=== PATIENT | male | born 1970 | race Caucasian/White ===

== ENCOUNTER 2017-01-05 14:25 | Emergency (ER) | payer BC ==
[2017-01-05] MEDS ORDERED: Tetan/Diph/Pertus SYR(Tdap)* 0.5 ML SYR(BOOSTRIX) use SYR IM ONE (15:07)
[2017-01-05 15:10] VITALS: BP 127/73
[2017-01-05] MEDS ORDERED: Lidocaine 2% W/EPI 1:100,000* 20 ML MDV ONE (15:14)
--- NOTE | 2017-01-05 15:23 | UC ---
Laceration HPI - HPI Summary HPI Summary: The patient comes in today for: 1. Laceration of the right wrist: Onset: Yesterday--about 9 PM. Palliative/provocative: Pressing on it makes it worse. Rest makes it better. Reaching down made it worse. Quality: No pain at this time at rest. Region/radiation: Right volar wrist. Severity: 0/10 Time: Constant. Associated symptoms: Event: Last evening, while he was cleaning the bathroom mirror, he dropped his right arm down from the mirror and in the process cut his right wrist on a broken Neel thermometer. Numbness: None Weakness: None Hand/finger movement: No loss of flexion and extension. Tetanus: He does not remember when his last tetanus was. * - History Of Current Complaint Stated Complaint: ARM LAC Time Seen by Provider: 01/05/17 15:03 Hx Obtained From: Patient - Allergies/Home Medications Allergies/Adverse Reactions: Allergies Allergy/AdvReac Type Severity Reaction Status Date / Time No Known Allergies Allergy Verified 01/05/17 14:57 PMH/Surg Hx/FS Hx/Imm Hx Previously Healthy: Yes Endocrine History Of: Denies: Diabetes, Thyroid Disease, Hyperthyroidism, Hypothyroidism, Dyslipidemia Cardiovascular History Of: Denies: Cardiac Disorders, Hypertension, Pacemaker/ICD, Myocardial Infarction , Congestive Heart Failure, Atrial Fibrillation, Deep Vein Thrombosis, Bleeding Disorders Respiratory History Of: Denies: COPD, Asthma, Bronchitis, Pneumonia, Pulmonary Embolism GI/ History Of: Denies: Gastroesophageal Reflux, Ulcer, Gastrointestinal Bleed, Gall Bladder Disease, Kidney Stones, Diverticulitis, Renal Disease, Urosepsis Neurological History Of: Denies: TIA, CVA, Dementia, Seizures, Migraine Psychological History Of: Denies: Anxiety, Depression, Bipolar Disorder, Schizophrenia, Post Traumatic Stress Disorder Cancer History Of: Denies: Lung Cancer, Colorectal Cancer, Breast Cancer, Prostate Cancer, Cervical Cancer Other History Of: Negative For: HIV, Hepatitis B, Hepatitis C, Anticoagulant Therapy - Surgical History Surgical History: Yes Surgery Procedure, Year, and Place: disc in lower back - Family History Known Family History: Positive: Diabetes Negative: Hypertension - Social History Occupation: Employed Full-time Lives: With Family Alcohol Use: Weekly Substance Use Type: None Substance Use Comment - Amount & Last Used: weekly Smoking Status (MU): Heavy Every Day Tobacco Smoker Type: Cigarettes Review of Systems Constitutional: Negative Skin: Negative Eyes: Negative ENT: Negative Respiratory: Negative Cardiovascular: Negative Gastrointestinal: Negative Genitourinary: Negative Motor: Negative All Other Systems Reviewed And Are Negative: Yes Physical Exam Triage Information Reviewed: Yes Appearance: Well-Appearing, No Pain Distress, Well-Nourished Vital Signs Reviewed: Yes Eyes: Positive: Conjunctiva Clear. Negative: Discharge ENT: Positive: Hearing grossly normal. Negative: Pharyngeal erythema, Nasal congestion, Nasal drainage, TM bulging, TM dull, TM red, Tonsillar swelling, Tonsillar exudate Dental: Negative: Gross Decay/Caries @, Dental Fracture @ Neck: Positive: Supple, Nontender, No Lymphadenopathy. Negative: Nuchal Rigidity Respiratory: Positive: Lungs clear, No respiratory distress, No accessory muscle use. Negative: Accessory muscle use, Wheezing Cardiovascular: Positive: RRR, No Murmur Abdomen Description: Positive: Nontender, No Organomegaly, Soft. Negative: Distended, Guarding Musculoskeletal: Positive: Strength Intact, ROM Intact, No Edema, Other: - Right wrist: There was a 2.5 cm laceration. No exposed tendons or nerve was seen upon inspecting the wound. He had no complaints of numbness or transitional nurse weakness. He had full extension and flexion of all his fingers and thumb. Neurological: Positive: Alert, Muscle Tone Normal Psychological: Positive: Normal Response To Family, Age Appropriate Behavior, Consolable Skin: Positive: Other - Laceration of the right volar wrist.. Negative: rashes , breakdown Laceration Repair - Laceration Repair 1 Laceration Size After Repair: Length (cm) - 2.5, Width (mm) - 3, Depth (mm) - 5 Modified For Repair: No Type Injection: Local Anesthesia Used: 2.0% Lido Additive Used (in ml): Epi Cleansing Completed Via Routine Prep: Yes Irrigation With Pressure Irrigation Device: Yes Closure Material: Sutures Suture Of: Skin Suture Type: Nylon - Six 4-0 Diagnostics - Radiology No standard instances Xray Interpretation: No Acute Changes Radiology Interpretation Completed By: Radiologist - No foreign body. Laceration Course/Dx - Differential Dx - Laceration/Wound Differental Diagnoses: Cellulitis, Laceration, Puncture Wound Provider Diagnoses: Right wrist laceration (volar) Discharge - Discharge Plan Condition: Stable Disposition: HOME Patient Education Materials: Laceration (ED), Care For Your Stitches (ED) Referrals: Leonard Post MD [Primary Care Provider] - 2 Weeks (See your primary care provider (if he or she removes sutures) or us in 12-14 days for suture removal-- or sooner if there are any problems.) Additional Instructions: Wound care: Inspect the area daily. Gently cleans with a Q-tip and hydrogen peroxide or soap and water. Avoid getting the area wet for a prolonged time (more than a few minutes). Dry immediately if the area does become wet. Be seen if there is any increased swelling, drainage, tenderness or redness. If there is any oozing, please elevate and apply pressure. Apply ice as needed for swelling and pain for the first 2 days. Take [id number] pain medications as needed for pain.
--- NOTE | 2017-01-05 15:45 | RAD ---
INDICATION: Glass laceration assess for foreign body. TECHNIQUE: 3 views of the right wrist were obtained. FINDINGS: There is an old healed boxer's fracture of the fifth metacarpal. No acute fracture is seen. No radio opaque foreign body is noted. IMPRESSION: NO RADIOPAQUE FOREIGN BODY IS SEEN.
== END 2017-01-05 16:10 | disposition home or self-care (01) ==
LOC: UCEAST 14:25
DX: S61.511A Laceration without foreign body of right wrist, initial encounter (principal); W45.8XXA Other foreign body or object entering through skin, initial encounter; Y93.E9 Activity, other interior property and clothing maintenance; Y92.9 Unspecified place or not applicable; Z23 Encounter for immunization; F17.210 Nicotine dependence, cigarettes, uncomplicated
CPT/HCPCS: 12001; 90472; 90715; 99212; G0463

== ENCOUNTER 2017-09-13 06:39 | Inpatient (IN) | payer BC ==
[2017-09-13] MEDS ORDERED: NS 0.9% 1000 ML* 1,000 ML IV ONE (07:20)
[2017-09-13] MEDS ORDERED: Ondansetron INJ* 2 MG/ML VIAL IV ONE ×2 (07:20→11:48)
[2017-09-13 08:01] LABS: Hematocrit 51 % (42-52); Mean Corpuscular HGB Conc 33 g/dl (31-36); Mean Corpuscular Hemoglobin 31 pg (27-31); Mean Corpuscular Volume 92 fL (80-94); Mean Platelet Volume 10 um3 (7.4-10.4); Red Blood Count 5.53 10^6/ul (4.0-5.4); Red Cell Distribution Width 14 % (10.5-15); White Blood Count 21.7 10^3/ul (3.5-10.8)
[2017-09-13 08:17] LABS: Albumin 5.4 g/dL (3.2-5.2); BUN/Creatinine Ratio 8.5 (8-20); C Reactive Protein 6.99 mg/L (< 5.00); Calcium 11.4 mg/dL (8.6-10.3); EGFR African American 15.3 (>60); EGFR Non-African American 11.9 (>60); Globulin 3.7 g/dL (2-4); Potassium 4.6 mmol/L (3.5-5.0); Total Bilirubin 0.7 mg/dL (0.2-1.0); Total Protein 9.1 g/dL (6.4-8.9)
[2017-09-13 08:23] LABS: Troponin I 0.06 ng/mL (<0.04)
--- NOTE | 2017-09-13 08:23 | RAD ---
Indication: Vomiting, dehydration, pain. Comparison: December 08, 2016 CT. Technique: Supine and upright views of the abdomen. Report: No radiographic evidence for free air. Unremarkable bowel gas pattern. Moderate stool in the colon without significant rectal distension. Negative for suspicious calcifications. Pelvic phleboliths noted. Unremarkable soft tissue contours. Slight RIGHT convex curve of the lumbar spine as on the prior exam. IMPRESSION: Negative supine and upright abdomen radiographs. No acute pathologic process evident.
[2017-09-13] MEDS ORDERED: Famotidine IV* 10 MG/ML 2 ML (20 mg) IV SLOW PU ONE (08:46)
[2017-09-13] MEDS: NS 0.9% 1000 ML* 2,000 ML IV ONE ×3 (09:06→11:53)
--- NOTE | 2017-09-13 11:12 | RAD ---
Indication: Acute renal failure. Comparison: December 08, 2016 CT. Technique: Renal ultrasound. Report: Normal morphology 13.1 x 5.9 x 4.7 cm RIGHT kidney and 13.5 x 4.5 x 5.0 cm LEFT kidney. Normal bilateral renal cortical echogenicity. No focal renal lesions, conspicuous stones, or hydronephrosis. IMPRESSION: Negative renal ultrasound.
[2017-09-13 11:54] LABS: Urine Bacteria Absent (Absent); Urine Bilirubin Negative (Negative); Urine Glucose 1+(50 mg/dL) (Negative); Urine Nitrite Negative (Negative)
[2017-09-13] MEDS ORDERED: Al Hydrox/Mg Hydrox/Simet LIQ* 30 ML UDC PO PRN (13:14)
[2017-09-13] MEDS ORDERED: Morphine INJ* 2 MG/ML 1 ML SYRINGE (TWO MG - NEW SYRINGE VERSION) IV PRN (13:14)
[2017-09-13] MEDS ORDERED: Acetaminophen TAB* 325 MG PO PRN (13:14)
[2017-09-13] MEDS ORDERED: NS 0.9% 1000 ML* 1,000 ML IV SCH (13:15)
[2017-09-13 14:26] LABS: BUN/Creatinine Ratio 12.1 (8-20); Calcium 8.5 mg/dL (8.6-10.3); EGFR African American 27.4 (>60); EGFR Non-African American 21.3 (>60); Potassium 4.5 mmol/L (3.5-5.0)
[2017-09-13 14:43] LABS: Troponin I 0.1 ng/mL (<0.04)
[2017-09-13] MEDS ORDERED: Mouth Piece, Nicotine* 1 EACH CARTRIDGE ONE (16:40)
[2017-09-13] MEDS: Ondansetron INJ* 2 MG/ML VIAL IV PRN (16:45)
[2017-09-13] MEDS: Nicotine Inhaler* 10 MG AMP INH PRN (16:45)
--- NOTE | 2017-09-13 16:59 | ED ---
Gem Stoll Alfonso scribed for Denis De La O MD on 09/13/17 at 0811 . Complex/Multi-Sys Presentation - HPI Summary HPI Summary: This patient is a 47 year old M presenting to [facility] with a chief complaint of N /V since 2 days ago. The patient rates the pain 0/10 in severity. Symptoms aggravated by eating and drinking. Symptoms alleviated by nothing. Patient reports dehydration. Patient denies pain, diarrhea, constipation, and chills. He reports having similar symptoms twice a year. - History Of Current Complaint Chief Complaint: EDNauseaVomitDiarrh Time Seen by Provider: 09/13/17 07:20 Hx Obtained From: Patient Onset/Duration: Gradual Onset, Lasting Days - 2, Still Present Timing: Constant Aggravating Factor(s): eating and drinking Alleviating Factor(s): nothing Associated Signs And Symptoms: Positive: Other - dehydration. Patient denies pain, diarrhea, constipation, and chills. - Allergies/Home Medications Allergies/Adverse Reactions: Allergies Allergy/AdvReac Type Severity Reaction Status Date / Time No Known Allergies Allergy Verified 09/13/17 06:46 PMH/Surg Hx/FS Hx/Imm Hx Endocrine/Hematology History: Denies: Hx Anticoagulant Therapy, Hx Diabetes, Hx Thyroid Disease Cardiovascular History: Denies: Hx Congestive Heart Failure, Hx Deep Vein Thrombosis, Hx Hypertension , Hx Myocardial Infarction, Hx Pacemaker/ICD Respiratory History: Denies: Hx Asthma, Hx Chronic Obstructive Pulmonary Disease (COPD), Hx Lung Cancer, Hx Pneumonia, Hx Pulmonary Embolism GI History: Denies: Hx Gall Bladder Disease, Hx Gastrointestinal Bleed, Hx Ulcer, Hx Urosepsis History: Denies: Hx Kidney Stones, Hx Renal Disease Neurological History: Denies: Hx Dementia, Hx Migraine, Hx Seizures, Hx Transient Ischemic Attacks (TIA) Psychiatric History: Denies: Hx Anxiety, Hx Depression, Hx Schizophrenia, Hx Bipolar Disorder - Surgical History Surgery Procedure, Year, and Place: disc in lower back Infectious Disease History: No Infectious Disease History: Denies: Hx Hepatitis, Hx Human Immunodeficiency Virus (HIV), History Other Infectious Disease, Traveled Outside the [place] in Last 30 Days - Family History Known Family History: Positive: Diabetes Negative: Hypertension - Social History Alcohol Use: Weekly Hx Substance Use: No Substance Use Type: Reports: None Substance Use Comment - Amount & Last Used: weekly Hx Tobacco Use: Yes Smoking Status (MU): Heavy Every Day Tobacco Smoker Type: Cigarettes Review of Systems Positive: Other - dehydration. Negative: Fever, Chills Positive: Vomiting, Nausea, Other - negative constipation. Negative: Diarrhea Positive: Other - Negative pain All Other Systems Reviewed And Are Negative: Yes Physical Exam - Summary Physical Exam Summary: VITAL SIGNS: Reviewed. GENERAL: Patient is a well-developed and nourished male who is lying comfortable in the stretcher. Patient is not in any acute respiratory distress. HEAD AND FACE: No signs of trauma. No ecchymosis, hematomas or skull depressions. No sinus tenderness. EYES: PERRLA, EOMI x 2, No injected conjunctiva, no nystagmus. EARS: Hearing grossly intact. Ear canals and tympanic membranes are within normal limits. MOUTH: Oropharynx within normal limits. NECK: Supple, trachea is midline, no adenopathy, no JVD, no carotid bruit, no c- spine tenderness, neck with full ROM. CHEST: Symmetric, no tenderness at palpation LUNGS: Clear to auscultation bilaterally. No wheezing or crackles. CVS: Regular rate and rhythm, S1 and S2 present, no murmurs or gallops appreciated. ABDOMEN: Soft, non-tender. No signs of distention. No rebound no guarding, and no masses palpated. Bowel sounds are normal. EXTREMITIES: FROM in all major joints, no edema, no cyanosis or clubbing. NEURO: Alert and oriented x 3. No acute neurological deficits. Speech is normal and follows commands. SKIN: Dry and warm Triage Information Reviewed: Yes Vital Signs On Initial Exam: Initial Vitals Temp Pulse Resp BP Pulse Ox 97.6 F 110 16 152/108 95 09/13/17 06:40 09/13/17 06:40 09/13/17 06:40 09/13/17 06:40 09/13/17 06:40 Vital Signs Reviewed: Yes - [place] Coma Scale Coma Scale Total: 15 Diagnostics - Vital Signs Vital Signs Temp Pulse Resp BP Pulse Ox 09/13/17 06:40 97.6 F 110 16 152/108 95 - Laboratory Lab Results: Lab Results 09/13/17 Range/Units 07:53 WBC 21.7 H (3.5-10.8) 10^3/ul RBC 5.53 H (4.0-5.4) 10^6/ul Hgb 17.0 (14.0-18.0) g/dl Hct 51 (42-52) % MCV 92 (80-94) fL MCH 31 (27-31) pg MCHC 33 (31-36) g/dl RDW 14 (10.5-15) % Plt Count 305 (150-450) 10^3/ul MPV 10 (7.4-10.4) um3 Neut % (Auto) 89.2 H (38-83) % Lymph % (Auto) 5.1 L (25-47) % [place] % (Auto) 5.4 (1-9) % Eos % (Auto) 0 (0-6) % Baso % (Auto) 0.3 (0-2) % Absolute Neuts (auto) 19.3 H (1.5-7.7) 10^3/ul Absolute Lymphs (auto) 1.1 (1.0-4.8) 10^3/ul Absolute Monos (auto) 1.2 H (0-0.8) 10^3/ul Absolute Eos (auto) 0 (0-0.6) 10^3/ul Absolute Basos (auto) 0.1 (0-0.2) 10^3/ul Absolute Nucleated RBC 0.01 10^3/ul Nucleated RBC % 0.1 Result Diagrams: 09/13/17 07:53 09/13/17 13:55 Lab Statement: Any lab studies that have been ordered have been reviewed, and results considered in the medical decision making process. - Radiology Abdomen XR Radiology Interpretation Completed By: Radiologist - Negative supine and upright abdomen radiographs. No acute pathologic process evident. ED physician has reviewed this radiology report. - EKG 0808 Cardiac Rate: NL EKG Rhythm: Sinus Rhythm - 66 BPM EKG Interpretation: No ST Elevation - Additional Comments Diagnostic Additional Comments: US renal reveals, per radiologist, negative US. ED physician has reviewed this radiology report. Complex Multi-Symp Course/Dx Assessment/Plan: This patient is a 47 year old M presenting to [facility] with a chief complaint of N/V since 2 days ago. The patient rates the pain 0/10 in severity. Symptoms aggravated by eating and drinking. Symptoms alleviated by nothing. Patient reports dehydration. Patient denies pain, diarrhea, constipation, and chills. He reports having similar symptoms twice a year. An EKG reveals Sinus rhythm at [address] elevations. Abdomen XR reveals, per radiologist, Negative supine and upright abdomen radiographs. No acute pathologic process evident. ED physician has reviewed this radiology report. US renal reveals, per radiologist, negative US. ED physician has reviewed this radiology report. Test results with shows WBC of 21.7, Carbon dioxide of 21, Anion Gap of 19, BUN of 44, creatinine of 5.20, calcium of 11.4, CPK of 258, troponin of 0.06, and CRP of 6.9. Urinalysis shows 2+ protein, trace ketones, and 3+ blood. In the ED course the patient was given IV fluids, Zofran, but since the patient is now diagnosed with acuter renal failure, he was given 3 liters of fluid. We also were treating the hypercalcemia. At this point I consulted Dr. Ray (hospitalist) at 0939 regarding the patients case and she recommends a renal US and a Peñaloza cathether. Consulted Dr. Love (ball racker ) at 1306 who recommends admission and he will consult. Consulted Dr. Ray ( hospitalist) at 1311 who agrees to admit. The patient is agreeable with this plan. The patient is hemodynamically stable, alert and oriented x3. - Diagnoses Provider Diagnoses: Acute renal failure, Hypercalcemia, Elevated troponin, r/o acute coronary syndrome - Physician Notifications Discussed Care Of Patient With: Prema Ray Time Discussed With Above Provider: 09:39 Instructed by Provider To: Other - Consulted Dr. Ray (hospitalist) at 0939 regarding the patients case and she recommends a renal US and a Peñaloza cathether. Consulted Dr. Love (ball racker) at 1306 who recommends admission and he will consult. Consulted Dr. Ray (hospitalist) at 1311 who agrees to admit. - Critical Care Time Critical Care Time: 30-74 min Discharge - Discharge Plan Condition: Stable Disposition: ADMITTED TO [facility] documentation as recorded by the Gem rodriguez Alfonso accurately reflects the service I personally performed and the decisions made by me, Denis De La O MD.
[2017-09-13 17:32] LABS: Renal Sodium Excretion 0.92 %
--- NOTE | 2017-09-13 20:35 | HP ---
CC: Dr. Love * HISTORY AND PHYSICAL: DATE OF ADMISSION: 09/13/17 PRIMARY CARE PROVIDER: None. CHIEF COMPLAINT: Nausea and vomiting. HISTORY OF PRESENT ILLNESS: Toni Stanton is a 47-year-old male with history of cyclical vomiting for the past 5 to 7 years. The patient stated that he always had "a weak stomach" as a child. For the past 5 to 7 years, he had been having episodes of nausea and vomiting that sometimes would be just 1 time episode lasting several days. One of those episodes in August 2016 caused him to have acute renal failure with creatinine of 2. That resolved. Today, he comes into the hospital complaining of 3 days of nausea and vomiting. He had been anuric for a day and a half. He stated that his last bowel movement was a couple of days ago and that was"normally formed." The patient denies any abdominal pain. He states that he just cannot "keep food down." While evaluated in the emergency room, the patient received a total 5 L of intravenous hydration and his nausea and vomiting resolved. He was able to drink 2 cups of water without any problems. He denies abdominal pain. He was noted to have acute renal failure with creatinine of 5. He is going to be admitted to the hospital for acute renal failure. PAST MEDICAL HISTORY: 1. History of cyclical vomiting as above. 2. History of lower back pain and status post lower back pain surgery in the past. 3. The patient had an upper endoscopy to evaluate the cause of vomiting by Dr. Leonardo in February 2017 and was noted to have erosive esophagitis. MEDICATIONS: Include: 1. Zofran 4 mg every 6 hours p.r.n. 2. Pepcid 20 mg daily p.r.n. 3. Flexeril 10 mg b.i.d. p.r.n. ALLERGIES: No known drug allergies. FAMILY HISTORY: Parents are healthy, siblings are healthy. SOCIAL HISTORY: The patient smokes 1 pack per day and has been doing so for 28 years. He drinks 3 to 4 beers on a weekly basis. He uses marijuana couple of times in a week. 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 REVIEW OF SYSTEMS: Please see history of present illness. In addition to the above mentioned, the patient stated that for the past 5 years, he probably lost approximately 10 pounds due to the problems with nausea and vomiting. All the remaining 12 systems were reviewed with the patient, and apart from the above already mentioned in the history of present illness, were negative. PHYSICAL EXAMINATION GENERAL: The patient is a very pleasant 47-year-old male, who is in no acute distress. Alert, awake, and oriented x3. VITAL SIGNS: Blood pressure of 136/76, heart rate of 79 and regular, respiratory rate 16, oxygen saturation 96% on room air, temperature 97.6. HEENT: Head: Atraumatic, normocephalic. Eyes: Pupils are equal and reactive to light and accommodation. Oropharynx clear. Mucosa moist. NECK: Supple. No JVD. No bruits bilaterally. RESPIRATORY: Clear to auscultation bilaterally. CARDIOVASCULAR: Regular rate and rhythm. No murmur. ABDOMEN: Soft, nontender. Bowel sounds present in all 4 quadrants. EXTREMITIES: There is no edema. Pulses are +2 bilaterally. No clubbing or cyanosis. BACK: On evaluation of the back, no CVA tenderness was noted bilaterally. NEUROLOGIC: Speech clear. Cranial nerves II through XII grossly intact. Motor strength is 5/5 bilaterally. SKIN: On evaluation of the skin, mildly flushed, but no rashes noted. PSYCHIATRIC EVALUATION: Oriented x3, pleasant and cooperative with evaluation, with no evidence of anxiety or depression. DIAGNOSTIC STUDIES/LAB DATA: Showed sodium of 138, potassium 4.6, chloride 98 , carbon dioxide 21, BUN 44, creatinine 5.2, anion gap of 19. Liver function tests were unremarkable. Total CPK was 258. Troponin of 0.06. C-reactive protein of 6.9. Brain natriuretic peptide 74. Total calcium was 11.4, but repeat ionized calcium after several hours of intravenous hydration as mentioned above, I have the value of 4.5 of ionized calcium. Urinalysis was positive +1 white blood cells, +3 red blood cells, absent bacteria, positive for +2 blood, ketones, and protein. Renal ultrasound. Impression: "Negative renal ultrasound." EKG, normal sinus rhythm with a heart rate of 66 beats per minute with downsloping ST elevation, which most likely is a J-point elevation variant in leads V1 and V3. The patient has no other EKGs in the medical records for comparison. ASSESSMENT AND PLAN: 1. A 47-year-old male who has history of what appears to be cyclical nausea and vomiting, who presented with acute renal failure after he had an episode of nausea and vomiting that lasted approximately 3 days. 2. At this point, most likely etiology of the patient's acute renal failure dehydration, although acute tubular necrosis needs to be ruled out. Dr. Love was consulted for evaluation of this patient and fractional excretion of sodium is going to be obtained. For the time being, we will continue intravenous hydration. The patient already received about 5 L of intravenous hydration. I will continue normal saline at 125 mL an hour. 3. In regards to the patient's nausea and vomiting, I discussed with the patient possibility of marijuana causing cyclical vomiting. He stated that he has not smoked marijuana for the past 2 weeks. The patient is going to be continued on the Pepcid and converted Pepcid to intravenous for the time being due to history of erosive esophagitis. Please also note that patient's nausea so far resolved after intravenous hydration. 4. For DVT prophylaxis, the patient is ambulatory. 5. For the patient's history of tobacco use, nicotine replacement with nicotine inhalers going to be provided. 6. Patient's code status is full. His surrogate is his . TIME SPENT: Approximately 72 minutes was spent on admission of this patient, more than half that time was spent [id number] with the patient during the interview and physical exam. [id number]/[facility] #: [id number] MAURICE
[2017-09-13] MEDS ORDERED: Famotidine IV* 10 MG/ML 2 ML (20 mg) IV SLOW PU SCH (21:00)
[2017-09-14] MEDS ORDERED: Mouth Piece, Nicotine* 1 EACH CARTRIDGE ONE (02:10)
[2017-09-14] MEDS: Nicotine Inhaler* 10 MG AMP INH PRN ×2 (02:12→19:59)
[2017-09-14] MEDS: Ondansetron INJ* 2 MG/ML VIAL IV PRN (04:03)
[2017-09-14 06:26] LABS: Hematocrit 40 % (42-52); Hemoglobin 13.3 g/dl (14.0-18.0); Mean Corpuscular HGB Conc 33 g/dl (31-36); Mean Corpuscular Hemoglobin 30 pg (27-31); Mean Corpuscular Volume 92 fL (80-94); Mean Platelet Volume 11 um3 (7.4-10.4); Red Blood Count 4.37 10^6/ul (4.0-5.4); Red Cell Distribution Width 13 % (10.5-15); White Blood Count 16.2 10^3/ul (3.5-10.8)
[2017-09-14 06:38] LABS: BUN/Creatinine Ratio 20.5 (8-20); Calcium 9.1 mg/dL (8.6-10.3); EGFR African American 85.6 (>60); EGFR Non-African American 66.5 (>60)
[2017-09-14] MEDS: Famotidine IV* 10 MG/ML 2 ML (20 mg) IV SLOW PU SCH (08:06)
[2017-09-14] MEDS ORDERED: NS 0.9% 1000 ML* 1,000 ML IV SCH (10:21)
--- NOTE | 2017-09-14 12:08 | ECHO ---
Patient: TERESO BARRETT [facility] Rec#: [id number] : 1970 Date: 09/14/2017 Age: 47y Height: 182.88 cm / 72.0 in Weight: 74.84 kg / 164.9 lbs Sex: M BSA: 1.96 Room#: 411 Admit Date#: 09/13/2017 Type: Inpatient Referring: Prema Ray MD Reading: Antwon Francisco MD Materials Branch Chief: Whitney Walker [facility] Transthoracic Echocardiogram Indication: Elevated Troponins BP: 108/53 HR: 48 Rhythm: Bradycardia Findings History: Cyclic vomiting,smoker,daily ETOH. Technical Comments: The study quality is good. Completed at 0940. Left Ventricle: The left ventricular chamber size is normal. Global left ventricular wall motion and contractility are within normal limits. There is normal left ventricular systolic function. The estimated ejection fraction is 55-60%. Normal left ventricular diastolic filling is observed. Left Atrium: The left atrial chamber size is normal. Right Ventricle: The right ventricular chamber size and systolic function are within normal limits. Right Atrium: The right atrial cavity size is normal. Aortic Valve: The aortic valve is trileaflet. There is no evidence of aortic regurgitation. There is no evidence of aortic stenosis. Mitral Valve: The mitral valve leaflets are mildly thickened. There is no evidence of mitral regurgitation. There is no evidence of mitral stenosis. Tricuspid Valve: The tricuspid valve leaflets are normal. There is trace to mild tricuspid regurgitation. No pulmonary hypertension is noted. There is no tricuspid stenosis. Pulmonic Valve: The pulmonic valve appears normal. There is no evidence of pulmonic regurgitation. There is no pulmonic stenosis. Pericardium: The pericardium appears normal. Aorta: There is no dilatation of the ascending aorta. There is no dilatation of the aortic arch. There is mild dilatation of the aortic root. Pulmonary Artery: The main pulmonary artery appears normal. Venous: The inferior vena cava is dilated. There is a greater than 50% respiratory change in the inferior vena cava dimension. Conclusions Global left ventricular wall motion and contractility are within normal limits. There is normal left ventricular systolic function. The estimated ejection fraction is 55-60%. There is no evidence of aortic regurgitation. There is no evidence of aortic stenosis. There is no evidence of mitral regurgitation. There is trace to mild tricuspid regurgitation. No pulmonary hypertension is noted. The pericardium appears normal. Measurements Name Value Normal Range RVIDd (AP) 2D 2.6 cm (0.9 - 2.6) RVDdMajor (2D) 3.3 cm (2.2 - 4.4) RAd ISD 4CH 4.8 cm (3.4 - 4.9) RA (A4C)W 3.5 cm (2.9 - 4.6) IVSd (2D) 0.9 cm (0.6 - 1) LVPWd (2D) 1.1 cm (0.6 - 1) LVIDd (2D) 4.7 cm (3.6 - 5.4) LVIDs (2D) 3.3 cm - LV FS (2D) 29 % (25 - 45) Aortic Annulus 2.4 cm (1.4 - 2.6) Ao root diameter (2D) 3.8 cm (2.1 - 3.5) Ascending Ao 2.9 cm (2.1 - 3.4) Aortic arch 3 cm (1.8 - 3.4) Descending Ao 0.8 cm - LA dimension (AP) 2D 3.1 cm (2.3 - 3.8) LAd ISD 4CH 4.4 cm (2.9 - 5.3) LA ISD 4CH W 5 cm (2.5 - 4.5) Name Value Normal Range LA ESV SP 4CH (A/L) 70 ml - LA ESV SP 2CH (A/L) 72 ml - LA ESV BP (A/L) 71 ml - LA ESV BP (A/L) index 36.43 ml/m2 - LA ESV SP 4CH (MOD) 66 ml - LA ESV SP 2CH (MOD) 60 ml - Name Value Normal Range MV E-wave Vmax 0.8 m/sec - MV deceleration time 223 msec - MV A-wave Vmax 0.5 m/sec - MV E:A ratio 1.8 ratio - LV septal e' Vmax 0.15 m/sec - LV lateral e' Vmax 0.15 m/sec - LV E:e' septal ratio 5.33 ratio - LV E:e' lateral ratio 5.33 ratio - Name Value Normal Range AV Vmax 1.3 m/sec - AV VTI 31.1 cm - AV peak gradient 6.6 mmHg - AV mean gradient 3.28 mmHg - LVOT Vmax 1.1 m/sec - LVOT VTI 27 cm - LVOT peak gradient 5 mmHg - LVOT mean gradient 1.86 mmHg - Name Value Normal Range TR Vmax 2.5 m/sec - TR peak gradient 25 mmHg - RAP 8 mmHg - RVSP 33 mmHg - IVC diameter 2.3 cm - Name Value Normal Range PV Vmax 0.8 m/sec - PV peak gradient 2.53 mmHg -
--- NOTE | 2017-09-14 12:54 | PN ---
Subjective Date of Service: 09/14/17 Interval History: HOSPITALIST PROGRESS NOTE Patient seen and examined at bedside. He feels better, no further episodes of vomiting. Still has nausea and only drank the liquids that came on his breakfast tray, did not try any of the solids. No diarrhea, chest pain, palpitations, or dyspnea. Took multiple hot showers during the day, as they relieve his symptoms. Family History: Unchanged from Admission Social History: Unchanged from Admission Past Medical History: Unchanged from Admission Objective Active Medications: Acetaminophen (Tylenol Tab*) 650 mg PO Q4H PRN PRN Reason: FEVER/PAIN Al Hydrox/Mg Hydrox/Simethicone (Maalox Plus*) 30 ml PO Q6H PRN PRN Reason: INDIGESTION Famotidine (Pepcid Iv*) 20 mg IV SLOW PU DAILY MANINDER Last Admin: 09/14/17 08:06 Dose: 20 mg Sodium Chloride (Ns 0.9% 1000 Ml*) 1,000 mls @ 100 mls/hr IV PER RATE MANINDER Morphine Sulfate (Morphine Inj (Syringe)*) 2 mg IV Q4H PRN PRN Reason: PAIN Nicotine (Nicotine Inhaler*) 10 mg INH Q2H PRN PRN Reason: CRAVING Last Admin: 09/14/17 02:12 Dose: 10 mg Ondansetron HCl (Zofran Inj*) 4 mg IV Q4H PRN PRN Reason: NAUSEA/VOMITING Last Admin: 09/14/17 04:03 Dose: 4 mg Vital Signs - 8 hr 09/14/17 07:37 Temperature 97.8 F Pulse Rate 69 Respiratory 16 Rate Blood Pressure 124/80 (mmHg) O2 Sat by Pulse 98 Oximetry Oxygen Devices in Use Now: None Appearance: Pleasant middle aged gentleman lying in bed in NAD. Eyes: No Scleral Icterus Ears/Nose/Mouth/Throat: Mucous Membranes Moist Neck: Trachea Midline Respiratory: Symmetrical Chest Expansion and Respiratory Effort, Clear to Auscultation Cardiovascular: NL Sounds; No Murmurs; No JVD, RRR Abdominal: NL Sounds; No Tenderness; No Distention Extremities: No Edema Neurological: Alert and Oriented x 3, NL Muscle Strength and Tone Result Diagrams: 09/14/17 05:41 09/14/17 05:41 Assess/Plan/Problems-Billing Assessment: Mr. Stanton is a 47yo M with PMH of Cyclical vomiting syndrome, chronic back pain, erosive esophagitis, who presented to ED with c/o N/V. - Patient Problems (1) ANTONIO (acute kidney injury) Comment: - Pre-renal in nature - creatinine down from 5.2 to 1.1. - Continue IVF. (2) Cyclic vomiting syndrome Comment: - Patient has had recurrent episodes of N/V, every 6 months, sometimes requiring admission. - Patient smokes marijuana, and has significant relief of his symptoms with hot showers (took 4 yesterday) - suspect he may have cannabinoid hyperemesis syndrome - education provided. - Continue symptomatic treatment. (3) Elevated troponin I level Comment: - Suspect mild troponin elevation is secondary to demand ischemia in the setting of ANTONIO and dehydration. - Echo showed EF 55-60% with no wall motion abnormalities and no significant valvular disease. - Plan for stress test as outpatient. (4) DVT prophylaxis Comment: - Low risk - encourage ambulation. (5) Full code status Status and Disposition: Inpatient.
[2017-09-15 06:53] LABS: Hematocrit 43 % (42-52); Hemoglobin 14.3 g/dl (14.0-18.0); Mean Corpuscular HGB Conc 34 g/dl (31-36); Mean Corpuscular Hemoglobin 31 pg (27-31); Mean Corpuscular Volume 92 fL (80-94); Mean Platelet Volume 11 um3 (7.4-10.4); Red Blood Count 4.66 10^6/ul (4.0-5.4); Red Cell Distribution Width 13 % (10.5-15); White Blood Count 10.1 10^3/ul (3.5-10.8)
[2017-09-15 07:13] LABS: BUN/Creatinine Ratio 20.4 (8-20); Potassium 3.9 mmol/L (3.5-5.0)
[2017-09-15 07:14] LABS: Calcium 9.9 mg/dL (8.6-10.3); EGFR African American 93.9 (>60)
[2017-09-15] MEDS ORDERED: PROCHLORPERAZINE INJ 5 MG/ML 2 ML VIAL IV PRN (07:21)
[2017-09-15] MEDS: Pantoprazole IV* 40 MG IV SCH ×2 (08:21→10:52)
[2017-09-15] MEDS: Sucralfate TAB* 1 GM PO SCH ×2 (08:21→13:30)
[2017-09-15] MEDS: Famotidine IV* 10 MG/ML 2 ML (20 mg) IV SLOW PU SCH (08:21)
[2017-09-15 12:06] VITALS: BP 139/96
--- NOTE | 2017-09-16 04:39 | DS ---
DISCHARGE SUMMARY: DATE OF ADMISSION: 09/13/17 DATE OF DISCHARGE: 09/15/17 PRIMARY CARE PROVIDER: The patient has no primary care provider at this time, but this will be arranged. DISCHARGE DIAGNOSES: 1. Recurrent nausea and vomiting, suspect cannabinoid hyperemesis syndrome. 2. Dehydration. 3. Acute kidney injury. SECONDARY DIAGNOSES: 1. Chronic back pain. 2. Erosive esophagitis. MEDICATION LIST: 1. Ondansetron 4 mg p.o. q.6 hours p.r.n. nausea and vomiting. 2. Famotidine 20 mg p.o. daily as needed for heartburn. 3. Flexeril 10 mg p.o. b.i.d. as needed for muscle spasms. New Medication: 1. Sucralfate 1 g p.o. before meals for a month. HOSPITAL COURSE: Mr. Stanton is a 47-year-old male with a past medical history as stated above that presented to the emergency room with complaints of intractable nausea and vomiting. The patient states for the past 5 years, he has had cyclical vomiting, usually in 6 to 12 months interval. He had a similar presentation in August 2016 and at that time he had acute kidney injury with a creatinine of 2. This time, his chemistry showed a creatinine of 5.2. He was admitted for further evaluation. He received aggressive IV hydration and antiemetics, and his creatinine trended down to normal and he was down to 1.08 on discharge. A renal ultrasound showed no focal renal lesions, stones or hydronephrosis. The impression was that his renal failure was secondary to dehydration secondary to his severe vomiting. On admission, the patient was also found to have borderline elevation of troponins at 0.06, 0.1, and 0.06. This was likely secondary to demand ischemia in the setting of severe dehydration and acute kidney injury. EKG showed no acute ischemic changes and a transthoracic echocardiogram showed ejection fraction of 55% to 60% with no wall motion abnormalities and no significant valvular disease. The patient is a smoker and I believe as outpatient he would benefit of an exercise stress test when he is feeling better. After reviewing the patient's history, it became clear that he was taking 4 to 5 hot showers every day and he stated that this was one of things that really relieved his symptoms. That is suggestive of cannabinoid hyperemesis syndrome. The patient states that he smokes marijuana 2 to 3 times a week and he received education about the syndrome and he is willing to stop and see if these episodes stop happening. He had improvement of his symptoms and he was anxious for discharge today. He was able to tolerate diet, but he was advised to drink and eat in small amounts to avoid further nausea. PHYSICAL EXAMINATION: Vital Signs: Temperature 98.1, heart rate is 72, respiratory rate is 16, oxygen saturation 97% on room air, and blood pressure is 119/72. General: The patient is a pleasant, middle-aged male, sitting up in bed, in no acute distress. CVS: Normal S1 and S2, regular rate and rhythm. Chest: Breath sounds present bilaterally. No added sounds. Abdomen is soft, bowel sounds are present. Extremities: No edema. Neuro: He is alert and oriented x3. Able to move all 4 extremities. DIET: Regular diet. ACTIVITY: As tolerated. DISPOSITION: To home. STATUS WHILE IN THE HOSPITAL: Inpatient. Please keep in mind this is a summarized version of this patient's hospital stay. If you need more information, please feel free to call me at [phone] or please obtain the full medical records. Approximately 45 minutes was spent to complete this discharge. [id number]/CPS #: [id number] MAURICE
== END 2017-09-15 15:20 | disposition home or self-care (01) | DRG 460 ==
LOC: ED 06:39 → MED 13:14
PROVIDERS: ADMIT Internal Medicine; ATTEND Internal Medicine
DX: N17.9 Acute kidney failure, unspecified (principal); K22.10 Ulcer of esophagus without bleeding; E86.0 Dehydration; R11.2 Nausea with vomiting, unspecified; M54.9 Dorsalgia, unspecified; F17.210 Nicotine dependence, cigarettes, uncomplicated; J66.2 Cannabinosis; F12.90 Cannabis use, unspecified, uncomplicated; Z79.899 Other long term (current) drug therapy
CPT/HCPCS: 36415; 74020; 76775; 80048; 80053; 81003; 81015; 82330; 82550; 82570; 83690; 83880; 84300; 84484; 85025; 85610; 85730; 86140; 93005; 93306; 99406; A9270-GY; J0780; J2405